=== PATIENT | male | born 1955 | race African-American/Black ===

== ENCOUNTER 2018-06-25 10:18 | Emergency (ER) | payer BC ==
[~2018-06-25] VITALS: Ht 185.4 cm; Wt 129.3 kg
--- NOTE | 2018-06-25 10:49 | PHYS DOC ---
Past Medical History Past Medical History: Diabetes-Type II, Hypertension Past Surgical History: No Surgical History Smoking: Quit Greater Than 1 Year (quit smoking 30 years ago) Adult General Chief Complaint Chief Complaint: ABDOMINAL PAIN HPI HPI Patient is a very pleasant 62-year-old male who presents to the emergency department for evaluation. He states that at about 4 AM this morning he began experiencing some epigastric abdominal discomfort, described as a burning/sharp sensation. The discomfort did not radiate. He states he has had 3 or 4 prior episodes over the past few days as well. Nothing in particular seems to precipitate his symptoms. Eating does not really affect his pain. He has had nausea and some vomiting but has not had any bloody emesis. He has been having regular bowel movements. Denies any chest pain shortness of breath, dizziness, lightheadedness, fevers or chills. There are no alleviating, or exacerbating factors to his symptoms. Review of Systems Review of Systems Constitutional: Denies fever or chills [] Eyes: Denies change in visual acuity, redness, or eye pain [] HENT: Denies nasal congestion or sore throat [] Respiratory: Denies cough or shortness of breath [] Cardiovascular: The patient denies any shortness of breath, chest pain, palpitations, or orthopnea [] GI: Denies nausea, vomiting, bloody stools or diarrhea [] : Denies dysuria or hematuria [] Musculoskeletal: Denies back pain or joint pain [] Integument: Denies rash or skin lesions [] Neurologic: Denies headache, focal weakness or sensory changes [] Endocrine: Denies polyuria or polydipsia [] All other systems were reviewed and found to be within normal limits, except as documented in this note. Current Medications Current Medications Current Medications Medications (Trade) Dose Ordered Sig/Hermila Start Time Stop Time Status Last Admin Dose Admin Info (CONTRAST GIVEN -- Rx MONITORING) 1 each PRN DAILY PRN 06/25/18 11:15 06/27/18 11:14 Iohexol (Omnipaque 300 Mg/ml) 75 ml 1X ONCE 06/25/18 11:00 06/25/18 11:01 DC 06/25/18 11:16 75 ML Multi-Ingredient Mouthwash/Gargle (Gi Cocktail) 20 ml 1X ONCE 06/25/18 10:45 06/25/18 11:00 DC 06/25/18 11:12 20 ML Ondansetron HCl (Zofran) 4 mg 1X ONCE 06/25/18 10:45 06/25/18 11:00 DC 06/25/18 11:10 4 MG Sodium Chloride 1,000 ml @ 1,000 mls/hr Q1H 06/25/18 10:44 06/25/18 11:43 DC 06/25/18 11:08 1,000 MLS/HR Allergies Allergies Allergies Coded Allergies Type Severity Reaction Last Updated Verified No Known Drug Allergies 06/25/18 No Physical Exam Physical Exam PHYSICAL EXAM: CONSTITUTIONAL: Well developed, well nourished HEAD: normocephalic, atraumatic EENT: PERRL, EOMI. Conjunctivae normal color, sclerae non-icteric; moist mucous membranes. NECK: Supple, non-tender; no meningismus. LUNGS: Lungs CTA, breathing even and unlabored. Normal air movement. HEART: Regular rate and rhythm, no murmur CHEST: No deformity; non-tender ABDOMEN: The abdomen is soft, there is focal epigastric tenderness to palpation , without rebound or guarding. The right upper quadrant itself is nontender, Severino sign is absent. The remainder the abdomen is soft and non-tender, no masses or bruits. EXTREM: Normal ROM; no deformity, no calf tenderness. Normal pulses palpable in all extremities. There is no pedal edema. SKIN: No rash; no diaphoresis NEURO: Alert; normal speech and cognition; CN's grossly intact; strength grossly intact without focal deficit. BACK: No CVA TTP. Current Patient Data Vital Signs Vital Signs Date Time Temp Pulse Resp B/P (MAP) Pulse Ox O2 Delivery O2 Flow Rate FiO2 06/25/18 10:20 98.4 70 19 182/91 (121) 98 Room Air 98.4 Lab Values Laboratory Tests Test 06/25/18 10:44 06/25/18 10:50 06/25/18 11:45 Glucose (Fingerstick) 144 mg/dL (70-99) H White Blood Count 6.7 x10^3/uL (4.0-11.0) Red Blood Count 5.66 x10^6/uL (4.30-5.70) Hemoglobin 15.2 g/dL (13.0-17.5) Hematocrit 46.0 % (39.0-53.0) Mean Corpuscular Volume 81 fL (79-100) Mean Corpuscular Hemoglobin 27 pg (25-35) Mean Corpuscular Hemoglobin Concent 33 g/dL (31-37) Red Cell Distribution Width 15.6 % (11.5-14.5) H Platelet Count 186 x10^3/uL (140-400) Neutrophils (%) (Auto) 73 % (31-73) Lymphocytes (%) (Auto) 20 % (24-48) L Monocytes (%) (Auto) 7 % (0-9) Eosinophils (%) (Auto) 1 % (0-3) Basophils (%) (Auto) 1 % (0-3) Neutrophils # (Auto) 4.9 x10^3uL (1.8-7.7) Lymphocytes # (Auto) 1.3 x10^3/uL (1.0-4.8) Monocytes # (Auto) 0.5 x10^3/uL (0.0-1.1) Eosinophils # (Auto) 0.0 x10^3/uL (0.0-0.7) Basophils # (Auto) 0.0 x10^3/uL (0.0-0.2) Sodium Level 139 mmol/L (136-145) Potassium Level 4.0 mmol/L (3.5-5.1) Chloride Level 103 mmol/L (98-107) Carbon Dioxide Level 27 mmol/L (21-32) Anion Gap 9 (6-14) Blood Urea Nitrogen 15 mg/dL (8-26) Creatinine 1.4 mg/dL (0.7-1.3) H Estimated GFR (Cockcroft-Gault) 62.6 BUN/Creatinine Ratio 11 (6-20) Glucose Level 155 mg/dL (70-99) H Calcium Level 9.1 mg/dL (8.5-10.1) Total Bilirubin 0.5 mg/dL (0.2-1.0) Aspartate Amino Transferase (AST) 15 U/L (15-37) Alanine Aminotransferase (ALT) 30 U/L (16-63) Alkaline Phosphatase 30 U/L (46-116) L Troponin I Quantitative < 0.017 ng/mL (0.000-0.055) Total Protein 7.4 g/dL (6.4-8.2) Albumin 3.9 g/dL (3.4-5.0) Albumin/Globulin Ratio 1.1 (1.0-1.7) Lipase 194 U/L (73-393) Urine Collection Type Unknown Urine Color Yellow Urine Clarity Clear Urine pH 5.5 Urine Specific Rulo >=1.030 Urine Protein Negative mg/dL (NEG-TRACE) Urine Glucose (UA) Negative mg/dL (NEG) Urine Ketones (Stick) Negative mg/dL (NEG) Urine Blood Negative (NEG) Urine Nitrite Negative (NEG) Urine Bilirubin Negative (NEG) Urine Urobilinogen Dipstick 0.2 mg/dL (0.2 mg/dL) Urine Leukocyte Esterase Negative (NEG) Urine RBC 0 /HPF (0-2) Urine WBC 0 /HPF (0-4) Urine Squamous Epithelial Cells Few /LPF Urine Bacteria 0 /HPF (0-FEW) Laboratory Tests 06/25/18 10:50 Laboratory Tests 06/25/18 10:50 EKG EKG [Normal sinus rhythm at a rate of 77 beats for minute, left axis deviation, incomplete right bundle patricia block with otherwise normal intervals, there are no acute ischemic ST/T changes.] Radiology/Procedures Radiology/Procedures [PROCEDURE: CT ABD PELV W/ IV CONTRST ONLY PQRS Compliance Statement: One or more of the following individualized dose reduction techniques were utilized for this examination: 1. Automated exposure control 2. Adjustment of the mA and/or kV according to patient size 3. Use of iterative reconstruction technique CT ABD PELV W/ IV CONTRST ONLY Clinical Indication: UPPER ABD PAIN NAUSEA Comparison: None. Technique: Helical CT imaging of the abdomen and pelvis is performed after 75 cc of Omnipaque 300 IV contrast. Oral contrast not given. Findings: Minimal dependent atelectasis in the lung bases. There is a 3 mm nodule in the right middle lobe, image 8. Linear atelectasis or scarring in the inferior lingula. Cardiac size normal, no pericardial effusion. Liver, gallbladder, spleen, pancreas, adrenal glands, and abdominal aorta are normal. Kidneys enhance symmetrically, no hydronephrosis. Cortical hypodensity measuring 13 mm of the interpolar right kidney is not definitely a cyst due to increased attenuation. Stomach unremarkable. No dilated small bowel. The appendix is normal. Descending colon is not well distended accentuating wall thickness. There are a few diverticula of the sigmoid colon. No evidence of colitis or diverticulitis. No abdominal adenopathy or free fluid. Urinary bladder is normal. Prostate size normal. No pelvic free fluid. No compression fracture of the thoracolumbar spine. IMPRESSION: 1. No acute abdominal or pelvic abnormality. 2. Small cortical hypodensity of the right kidney is not definitely a cyst. Suggest outpatient renal ultrasound. 3. Minimal sigmoid colon diverticulosis without diverticulitis. 4. There is a 3 mm nodule in the right middle lobe. No further follow-up is required if patient does not have risk factors for lung malignancy per Fleischner Society guidelines.] Course & Med Decision Making Course & Med Decision Making Pertinent Labs and Imaging studies reviewed. (See chart for details) [12:25 PM: The patient's condition remained stable. He is feeling better. I discussed this test results, including the lack of clear etiology of symptoms at this point, although GERD/peptic ulcer disease is suspected. I discussed the inability to definitively rule out an acute cardiac etiology of his symptoms, although his symptoms are certainly not typical of this. We discussed overnight observation for further formal cardiac evaluation but the patient declined. I discussed importance of close outpatient follow-up, and return precautions in detail with the patient.] Dragon Disclaimer Dragon Disclaimer This electronic medical record was generated, in whole or in part, using a voice recognition dictation system. Departure Departure Impression: Primary Impression: Epigastric abdominal pain Disposition: HOME, SELF-CARE Condition: STABLE Referrals: NORMA HOLLIDAY MD Patient Instructions: Abdominal Pain, Gastrin Scripts Omeprazole (OMEPRAZOLE) 20 Mg Capsule.dr 1 CAP PO DAILY, #30 CAP 1 Refill Prov: YAZAN ROONEY MD 06/25/18 YAZAN ROONEY MD Jun 25, 2018 10:49
[2018-06-25 10:56] LABS: BASO % 1 % (0-3); EOS % 1 % (0-3); HEMOGLOBIN 15.2 g/dL (13.0-17.5); LYMPH # 1.3 x10^3/uL (1.0-4.8); LYMPH % 20 % (24-48); MEAN CORPUSCULAR HEMOGLOBIN 27 pg (25-35); MEAN CORPUSCULAR HGB CONC 33 g/dL (31-37); MEAN CORPUSCULAR VOLUME 81 fL (79-100); MONO # 0.5 x10^3/uL (0.0-1.1); MONO % 7 % (0-9); NEUT # 4.9 x10^3uL (1.8-7.7); NEUT % 73 % (31-73); PLATELET COUNT 186 x10^3/uL (140-400); RED BLOOD COUNT 5.66 x10^6/uL (4.30-5.70); RED CELL DISTRIBUTION WIDTH 15.6 % (11.5-14.5); WHITE BLOOD COUNT 6.7 x10^3/uL (4.0-11.0)
[2018-06-25 11:07] LABS: CALCIUM 9.1 mg/dL (8.5-10.1); CREATININE 1.4 mg/dL (0.7-1.3); GFR 62.6
[2018-06-25] MEDS: IV NORMAL SALINE 1000ML BAG 1,000 ML IV SCH (11:08)
[2018-06-25] MEDS: ONDANSETRON PF 4 MG/2 ML VIAL. IV ONE (11:10)
[2018-06-25 11:12] LABS: ALBUMIN 3.9 g/dL (3.4-5.0); ALBUMIN/GLOBULIN RATIO 1.1 (1.0-1.7); TOTAL BILIRUBIN 0.5 mg/dL (0.2-1.0); TOTAL PROTEIN 7.4 g/dL (6.4-8.2)
[2018-06-25] MEDS: LIDO:MAALOX 1:1 20 ML SINGLE DOSE. SWSW ONE (11:12)
[2018-06-25] MEDS ORDERED: CONTRAST GIVEN. MC PRN (11:15)
[2018-06-25] MEDS: IOHEXOL 300 MG/ML 100ML VIAL. IV ONE (11:16)
--- NOTE | 2018-06-25 11:22 | EKG ---
[facility] [address] [place] [address] Test Date: 2018-06-25 Test Time: 10:49:12 Pat Name: KYM BARAHONA Department: Room: Gender: M Teller: : 1955 Requested By: YAZAN ROONEY Order Number: [id number] Reading MD: Juan Thomas Measurements Intervals Lovilia Rate: 76 P: 52 DE: 176 QRS: -6 QRSD: 82 T: -3 QT: 342 QTc: 388 Interpretive Statements SINUS RHYTHM LEFTWARD AXIS INCOMPLETE RIGHT BUNDLE BRANCH BLOCK Electronically Signed On 06-26-2018 11:30:01 CDT by Juan Thomas
--- NOTE | 2018-06-25 11:46 | RAD ---
PQRS Compliance Statement: One or more of the following individualized dose reduction techniques were utilized for this examination: 1. Automated exposure control 2. Adjustment of the mA and/or kV according to patient size 3. Use of iterative reconstruction technique CT ABD PELV W/ IV CONTRST ONLY Clinical Indication: UPPER ABD PAIN NAUSEA Comparison: None. Technique: Helical CT imaging of the abdomen and pelvis is performed after 75 cc of Omnipaque 300 IV contrast. Oral contrast not given. Findings: Minimal dependent atelectasis in the lung bases. There is a 3 mm nodule in the right middle lobe, image 8. Linear atelectasis or scarring in the inferior lingula. Cardiac size normal, no pericardial effusion. Liver, gallbladder, spleen, pancreas, adrenal glands, and abdominal aorta are normal. Kidneys enhance symmetrically, no hydronephrosis. Cortical hypodensity measuring 13 mm of the interpolar right kidney is not definitely a cyst due to increased attenuation. Stomach unremarkable. No dilated small bowel. The appendix is normal. Descending colon is not well distended accentuating wall thickness. There are a few diverticula of the sigmoid colon. No evidence of colitis or diverticulitis. No abdominal adenopathy or free fluid. Urinary bladder is normal. Prostate size normal. No pelvic free fluid. No compression fracture of the thoracolumbar spine. IMPRESSION: 1. No acute abdominal or pelvic abnormality. 2. Small cortical hypodensity of the right kidney is not definitely a cyst. Suggest outpatient renal ultrasound. 3. Minimal sigmoid colon diverticulosis without diverticulitis. 4. There is a 3 mm nodule in the right middle lobe. No further follow-up is required if patient does not have risk factors for lung malignancy per Fleischner Society guidelines. Electronically signed by: Bart Mcfarlane MD (06/25/2018 11:43 AM) [id number]
[2018-06-25 11:55] LABS: BILIRUBIN,URINE NEGATIVE (NEG); CLARITY,URINE CLEAR; COLOR,URINE YELLOW; NITRITE,URINE NEGATIVE (NEG); PH,URINE 5.5; PROTEIN,URINE NEGATIVE (NEG-TRACE); UROBILINOGEN,URINE 0.2 mg/dL (0.2 mg/dL)
[2018-06-25 12:03] LABS: BACTERIA,URINE 0 /HPF (0-FEW); RBC,URINE 0 /HPF (0-2); SQUAMOUS EPITHELIAL CELL,UR FEW /LPF; WBC,URINE 0 /HPF (0-4)
[2018-06-25] MEDS ORDERED: OMEP20CA9 PO (12:27)
[2018-06-25 13:00] VITALS: BP 185/85
[2018-06-25] MEDS ORDERED: ONDA4TAB10 SL (13:14)
== END 2018-06-25 13:15 | disposition home or self-care (01) ==
LOC: ER 10:18
DX: R10.13 Epigastric pain (principal); K57.30 Diverticulosis of large intestine without perforation or abscess without bleeding; R11.2 Nausea with vomiting, unspecified; E11.9 Type 2 diabetes mellitus without complications; I10 Essential (primary) hypertension; Z87.891 Personal history of nicotine dependence
CPT/HCPCS: 36415; 74177; 80053; 81001; 82962; 83690; 84484; 85025; 93005; 96361; 96374; 99285; J2405; J7030; Q9967